=== PATIENT | male | born 1940 | race Caucasian/White ===

== ENCOUNTER 2019-05-19 12:17 | Emergency (ER) | payer MEDICARE, OTHER ==
[2019-05-19] MEDS ORDERED: Aspirin 81 MG Tab.Chew PO ONE (12:34)
[2019-05-19] MEDS ORDERED: Alum Hydroxide/Mag Hydroxide 15 ML, Lidocaine 2% 15 ML PO ONE ×2 (12:39)
--- NOTE | 2019-05-19 12:48 | EDM.PDOC ---
ED HPI GENERAL MEDICAL PROBLEM - General Chief Complaint: Chest Pain Stated Complaint: CHEST PAINS Time Seen by Provider: 05/19/19 12:30 Source of Information: Reports: Patient, Family History Limitations: Reports: No Limitations - History of Present Illness INITIAL COMMENTS - FREE TEXT/NARRATIVE: has had retrosternal chest pressure for 2 weeks . Belging more than usual despite being on omeprazole . Today was hauling something heavy in the snow when he felt the pressure increase to a 8/10 and would not resolve about 10am No nausea or vomiting , no radiation to the arm or to the neck . Still retrosternal pressure on arrival in [place] states pain is about a 5/10 does not take any other medication no history of cardiac disease , no history of having had stress test done Onset: Today Onset Date: 05/07/19 Duration: Week(s): (2), Getting Worse Location: Reports: Chest (retrosternal with no radiation) - Related Data Allergies Allergy/AdvReac Type Severity Reaction Status Date / Time cephalexin [Cephalexin] Allergy Cannot Verified 09/26/13 13:54 Remember naproxen Allergy Cannot Verified 09/26/13 13:54 Remember Penicillins Allergy Cannot Verified 09/26/13 13:54 Remember Home Meds: Home Meds Glucosamine/MSM/Chondrt/C/Hyal [Ra [id number] Tab] 1 tab DAILY 09/26 [History] Lutein/Minerals/Vit A,C & E [Ocuvite] 1 tab PO BEDTIME 09/26/13 [History] Doxycycline [Vibra-Tabs] 100 mg PO Q12HR #28 tab 10/12/14 [Rx] Psyllium with Sucrose [Metamucil] 1 pkt BEDTIME 10/12/14 [History] Past Medical History Other Gastrointestinal History: diverticulitis - Past Surgical History Other HEENT Surgeries/Procedures: laser surgery to R eye Other Male Surgeries/Procedures: had stent in for kidney stones in past ED ROS GENERAL - Review of Systems Review Of Systems: See Below Constitutional: Reports: Weakness HEENT: Reports: No Symptoms Respiratory: Reports: Shortness of Breath. Denies: Cough Cardiovascular: Reports: Other (chest pressure) Endocrine: Reports: No Symptoms GI/Abdominal: Reports: No Symptoms : Reports: No Symptoms Musculoskeletal: Reports: No Symptoms Skin: Reports: No Symptoms Neurological: Reports: No Symptoms, Change in Speech Hematologic/Lymphatic: Reports: No Symptoms Immunologic: Reports: No Symptoms ED EXAM, GENERAL - Physical Exam Exam: See Below Exam Limited By: No Limitations General Appearance: Alert, WD/WN, No Apparent Distress Eye Exam: Bilateral Eye: EOMI Ears: Normal External Exam Throat/Mouth: Normal Oropharynx Neck: Normal Inspection, Supple, Non-Tender, Full Range of Motion Respiratory/Chest: Lungs Clear, Normal Breath Sounds, Chest Non-Tender Cardiovascular: No Edema, No JVD, Irregularly Irregular GI/Abdominal: Normal Bowel Sounds, Soft, Non-Tender Back Exam: Normal Inspection, Full Range of Motion Neurological: Alert, Oriented, CN II-XII Intact, Normal Cognition, Confused Psychiatric: Normal Affect, Anxious Skin Exam: Warm, Dry, Intact Lymphatic: No Adenopathy EKG INTERPRETATION EKG Date: 05/19/19 Time: 12:41 Rhythm: NSR [place]: LAD-Left [place] Deviation P-Wave: Present QRS: Normal ST-T: Normal Comparison: NA - No Prior EKG EKG Interpretation Comments: abnormal r wave progression , early transition Course - Vital Signs Text/Narrative:: pt given GI cocktail and aspirin and chest pressure resolved - Orders/Labs/Meds Orders: Active Orders 24 hr Category Date Time Status Chest 1V Frontal [CR] Stat Exams 05/19/19 12:39 Taken Labs: Laboratory Tests 05/19/19 05/19/19 05/19/19 Range/Units 12:55 12:55 12:55 WBC 6.1 (4.5-12.0) X10-3/uL RBC 5.18 (4.30-5.75) x10(6)uL Hgb 15.0 (13.5-17.8) g/dL Hct 45.9 (30.0-51.3) % MCV 88.5 (80-96) fL MCH 28.9 (27.7-33.6) pg MCHC 32.6 (32.2-35.4) g/dL RDW 12.6 (11.5-15.5) % Plt Count 223 (125-369) X10(3)uL MPV 7.3 L (7.4-10.4) fL Neut % (Auto) 54.9 (46-82) % Lymph % (Auto) 33.3 (13-37) % Grand % (Auto) 7.7 (4-12) % Eos % (Auto) 3 (1.0-5.0) % Baso % (Auto) 1 (0-2) % Neut # (Auto) 3.4 (1.6-8.3) # Lymph # (Auto) 2.0 (0.6-5.0) # Grand # (Auto) 0.5 (0.0-1.3) # Eos # (Auto) 0.2 (0.0-0.8) # Baso # (Auto) 0.0 (0.0-0.2) # PT (8.7-11.1) INR (0.89-1.13) Sodium 143 (135-145) mmol/L Potassium 4.2 (3.5-5.3) mmol/L Chloride 105 (100-110) mmol/L Carbon Dioxide 29 (21-32) mmol/L BUN 18 (7-18) mg/dL Creatinine 1.2 (0.70-1.30) mg/dL Est Cr Clr Drug Dosing TNP Estimated GFR (MDRD) 58 L (>60) BUN/Creatinine Ratio 15.0 (9-20) Glucose 96 (80-116) mg/dL Calcium 9.1 (8.6-10.2) mg/dL Magnesium (1.8-2.5) mg/dL Total Bilirubin 0.6 (0.1-1.3) mg/dL AST 19 (5-25) IU/L ALT 31 (12-36) U/L Alkaline Phosphatase 151 H (56-112) IU/L Troponin I < 0.017 L (<0.017-0.056) ng/mL NT-Pro-B Natriuret Pep (<=450) pg/mL Total Protein 7.3 (6.0-8.0) g/dL Albumin 4.1 (3.2-4.6) g/dL Globulin 3.2 g/dL Albumin/Globulin Ratio 1.3 05/19/19 05/19/19 05/19/19 Range/Units 12:55 12:55 12:55 WBC (4.5-12.0) X10-3/uL RBC (4.30-5.75) x10(6)uL Hgb (13.5-17.8) g/dL Hct (30.0-51.3) % MCV (80-96) fL MCH (27.7-33.6) pg MCHC (32.2-35.4) g/dL RDW (11.5-15.5) % Plt Count (125-369) X10(3)uL MPV (7.4-10.4) fL Neut % (Auto) (46-82) % Lymph % (Auto) (13-37) % Grand % (Auto) (4-12) % Eos % (Auto) (1.0-5.0) % Baso % (Auto) (0-2) % Neut # (Auto) (1.6-8.3) # Lymph # (Auto) (0.6-5.0) # Grand # (Auto) (0.0-1.3) # Eos # (Auto) (0.0-0.8) # Baso # (Auto) (0.0-0.2) # PT 10.2 (8.7-11.1) INR 1.05 (0.89-1.13) Sodium (135-145) mmol/L Potassium (3.5-5.3) mmol/L Chloride (100-110) mmol/L Carbon Dioxide (21-32) mmol/L BUN (7-18) mg/dL Creatinine (0.70-1.30) mg/dL Est Cr Clr Drug Dosing Estimated GFR (MDRD) (>60) BUN/Creatinine Ratio (9-20) Glucose (80-116) mg/dL Calcium (8.6-10.2) mg/dL Magnesium 2.1 (1.8-2.5) mg/dL Total Bilirubin (0.1-1.3) mg/dL AST (5-25) IU/L ALT (12-36) U/L Alkaline Phosphatase (56-112) IU/L Troponin I (<0.017-0.056) ng/mL NT-Pro-B Natriuret Pep 36 (<=450) pg/mL Total Protein (6.0-8.0) g/dL Albumin (3.2-4.6) g/dL Globulin g/dL Albumin/Globulin Ratio Meds: Medications Discontinued Medications Generic Name Dose Route Start Last Admin Trade Name Freq PRN Reason Stop Dose Admin Aspirin 324 mg 05/19/19 12:34 05/19/19 12:40 Aspirin PO 05/19/19 12:35 324 mg ONETIME ONE Administration Al Hydroxide/Mg Hydroxide 15 0 ml 05/19/19 12:39 05/19/19 12:53 ml/ Lidocaine HCl 15 ml PO 05/19/19 12:40 15 ml ONETIME ONE Administration Departure - Departure Time of Disposition: 13:30 Disposition: Home, Self-Care 01 Condition: Good Clinical Impression: Atypical chest pain, Gastroesophageal reflux disease Instructions: Exercise Stress Test, [id number], Nonspecific Chest Pain Referrals: Brock Bradley MD [Primary Care Provider] - Forms: ED Department Discharge Additional Instructions: make appt to see your PCP . You need to have a stress test done . Increase dose of Omeprazole to 20mg 2 times daily Start aspirin 81 mg daily Sepsis Event Note - Focused Exam Date Exam was Performed: 05/19/19 Time Exam was Performed: 13:31 - My Orders Last 24 Hours: My Active Orders 05/19/19 12:39 Chest 1V Frontal [CR] Stat - Assessment/Plan Last 24 Hours: My Active Orders 05/19/19 12:39 Chest 1V Frontal [CR] Stat
--- NOTE | 2019-05-19 14:03 | CR ---
INDICATION: Chest pain. CHEST, 1 VIEW: Portable AP upright view of the chest, 05/19/19, was compared with 04/11/11 and revealed the heart to be at the upper limits of normal in size or slightly enlarged. The aorta is slightly tortuous with minimal calcification in the arch. Overlying EKG leads are noted. Pulmonary markings are similar to the previous study overall without a definite active infiltrate or effusion. However, markings are somewhat prominent to lung bases making it difficult to entirely exclude minimal patchy bronchopneumonia. IMPRESSION: 1. No definite acute process. 2. ASHD. 3. Difficult to entirely exclude minimal patchy bronchopneumonia due to somewhat heavy markings at the lung bases. MTDD
[2019-05-19] MEDS ORDERED: Sodium Chloride 0.9% 10 ML Syringe FLUSH PRN (14:20)
[2019-05-19 14:49] VITALS: BP 160/84; PULSE 83
== END 2019-05-19 14:00 | disposition home or self-care (01) ==
LOC: FB.ED 12:17
DX: R07.89 Other chest pain (principal); K21.9 Gastro-esophageal reflux disease without esophagitis; Z88.8 Allergy status to other drugs, medicaments and biological substances; Z88.0 Allergy status to penicillin; Z88.1 Allergy status to other antibiotic agents
CPT/HCPCS: 36415; 71045; 80053; 83735; 83880; 84484; 85025; 85610; 93005; 93010; 99284; 99285-25; A9270-GY